=== PATIENT | male | born 1970 | race Asian ===

== ENCOUNTER 2024-01-02 13:37 | Emergency (ER) | payer OTHER, SELFPAY ==
[2024-01-02 13:46] VITALS: BP 155/87
[2024-01-02 14:12] LABS: % Basophils 0.5 % (0-2); % Eosinophils 0.6 % (0-6); % Immature Granulocytes 0.2 % (0-0.5); % Lymphocytes 20.1 % (20.5-51.1); % Neutrophils 70.6 % (42.2-75.2); Absolute Basophils 0.1 10^3/uL (0-0.2); Absolute Eosinophils 0.1 10^3/uL (0-0.7); Absolute Lymphocytes 1.9 10^3/uL (1.2-3.4); Absolute Monocytes 0.8 10^3/uL (0.1-0.6); Absolute Neutrophils 6.8 10^3/uL (1.4-6.5); Hematocrit 47.5 % (39.0-52.0); Hemoglobin 16.8 g/dL (13.0-18.0); Mean Corp Hgb Conc. 35.4 g/dL (33.0-37.0); Mean Corpuscular Hgb 30.8 pg (27.0-31.0); Mean Corpuscular Volume 87.2 fL (80.0-94.0); Mean Platelet Volume 9.7 fL (7.4-10.4); Nucleated Red Blood Cells % 0 % (-); Platelet Count 295 10^3/uL (130-400); Red Blood Cell Count 5.45 10^6/uL (4.70-6.10); Red Cell Dist. Width 12.1 % (11.5-14.5); White Blood Cell Count 9.6 10^3/uL (4.8-10.8)
[2024-01-02 14:25] LABS: ALT (SGPT) 38 U/L (0-50); AST (SGOT) 25 U/L (17-59); Albumin 4.3 g/dl (3.5-5.0); Alkaline Phosphatase 92 U/L (38-126); Blood Urea Nitrogen 18 mg/dl (9-20); Calcium 9.6 mg/dl (8.4-10.2); Carbon Dioxide 30 mmol/L (22-30); Chloride 102 mmol/L (98-107); Glucose 103 mg/dl (70-99); Lipase 105 U/L (23-300); Potassium 3.8 mmol/L (3.5-5.1); Sodium 138 mmol/L (135-145); Total Bilirubin 0.5 mg/dl (0.2-1.3); Total Protein 6.8 g/dl (6.3-8.2); eGFR > 60.00
[2024-01-02 14:56] VITALS: BP 134/81
[2024-01-02] MEDS: NSS 1000 IV (15:33)
[2024-01-02 16:08] LABS: COVID-19 Antigen Negative (Negative)
--- NOTE | 2024-01-02 16:54 | ED.GENMED ---
History of Present Illness
<Lolita Holloway PA-C - Last Filed: 01/03/24 18:21>
General
Chief Complaint: Abdominal Symptoms
Time Seen by Provider: 01/02/24 14:53
History of Present Illness
History of Present Illness:
53yoM with no significant past medical history presenting with his for evaluation of abdominal symptoms. Patient is Syriac speaking and history is obtained with the assistance of an political scientist. Symptoms initially started 1 week ago. He
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 He started having nausea and vomiting 1 week ago which lasted for 2 days before resolving. He has not had any vomiting in the past 5 days. He also is constipated and has not had a BM in 7 days.
He reports intermittent R sided abdominal pain but he denies any pain currently. He also is having a headache. He had chills yesterday but denies any fevers. He has been seen by his PCP and at urgent care for his symptoms. No previous abdominal
surgeries.
Phy Exam
<Lolita Holloway PA-C - Last Filed: 01/03/24 18:21>
General Physical Exam
General Presentation: well appearing and no apparent distress
General age: appears stated age
General Skin: warm and dry
General Habitus: normal
General Mental: alert
Cardiovascular Exam
Cardiovascular Exam: regular rate/rhythm, no edema and no murmur
Pulmonary Exam
Pulmonary Exam: lungs clear, no respiratory distress, no crackles and no wheezing
Gastrointestinal Exam
Gastrointestinal Exam: non tender, soft and non distended
Skin Exam
Skin Exam: normal color and warm/dry
Psychiatric Exam
Psychiatric Exam: normal mood/affect
Course
<Lolita Holloway PA-C - Last Filed: 01/03/24 18:21>
Orders/Labs/Results
Orders:
Orders
01/02/24 13:55
Complete Blood Count/With Diff Urgent
Comprehensive Metabolic Panel Urgent
Lipase Urgent
01/02/24 15:14
CT Abd/pelvis W Iv Cont Urgent
Comment:
Reason For Exam: Intermittent R abd pain, constipation
0.9% Sodium Chloride 1000 ml [Nss] 1,000 ml IV BOLUS
01/02/24 15:42
COVID-19 Antigen Urgent
Source: Nasal Swab
Abnormal Lab Results
01/02/24
13:55
Absolute Neuts (auto) 6.8 H 10^3/uL
(1.4-6.5)
Absolute Monos (auto) 0.8 H 10^3/uL
(0.1-0.6)
Lymphocytes % 20.1 L %
(20.5-51.1)
Glucose 103 H mg/dl
(70-99)
01/02/24 13:55
01/02/24 13:55
Vital Signs
Initial and Last Documented VS:
Initial Vital Signs
Temp Pulse Resp BP Pulse Ox
98.7 F 68 18 155/87 98
01/02/24 13:46 01/02/24 13:46 01/02/24 13:46 01/02/24 13:46 01/02/24 13:46
Last Documented Vital Signs
Temp Pulse Resp BP Pulse Ox
98.7 F 72 18 144/82 99
01/02/24 13:46 01/02/24 17:13 01/02/24 17:13 01/02/24 17:13 01/02/24 17:13
Lucianlt;Scott Powell PA-C - Last Filed: 01/02/24 19:23>
Orders/Labs/Results
Orders:
Orders
01/02/24 13:55
Complete Blood Count/With Diff Urgent
Comprehensive Metabolic Panel Urgent
Lipase Urgent
01/02/24 15:14
CT Abd/pelvis W Iv Cont Urgent
Comment:
Reason For Exam: Intermittent R abd pain, constipation
0.9% Sodium Chloride 1000 ml [Nss] 1,000 ml IV BOLUS
01/02/24 15:42
COVID-19 Antigen Urgent
Source: Nasal Swab
Abnormal Lab Results
01/02/24
13:55
Absolute Neuts (auto) 6.8 H 10^3/uL
(1.4-6.5)
Absolute Monos (auto) 0.8 H 10^3/uL
(0.1-0.6)
Lymphocytes % 20.1 L %
(20.5-51.1)
Glucose 103 H mg/dl
(70-99)
01/02/24 13:55
01/02/24 13:55
Vital Signs
Initial and Last Documented VS:
Initial Vital Signs
Temp Pulse Resp BP Pulse Ox
98.7 F 68 18 155/87 98
01/02/24 13:46 01/02/24 13:46 01/02/24 13:46 01/02/24 13:46 01/02/24 13:46
Last Documented Vital Signs
Temp Pulse Resp BP Pulse Ox
98.7 F 72 18 144/82 99
01/02/24 13:46 01/02/24 17:13 01/02/24 17:13 01/02/24 17:13 01/02/24 17:13
Lucianlt;Lolita Holloway PA-C - Last Filed: 01/03/24 18:21>
MDM/Problems Addressed
Differential Diagnosis Includes:
53yoM here with abdominal symptoms x 1 week. Initially started with vomiting. C/o constipation and has not had a BM in 7 days. Also having intermittent R sided abd pain and headaches. He is afebrile and hemodynamically stable. He is well appearing
in no distress. No signs of peritonitis on abdominal exam. Differential diagnosis includes but is not limited to: constipation, gastroenteritis, viral syndrome, diverticulitis, appendicitis
Initial ED plan: Check abdominal labs, COVID swab, and CT abdomen. IV fluid bolus.
<Scott Powell PA-C - Last Filed: 01/02/24 19:23>
*Critical Care Note
Total Time (30-74mins, 75-104mins- exclusive of procedures): Not Applicable
<Lolita Holloway PA-C - Last Filed: 01/03/24 18:21>
Update Note
Update Note:
Labs unremarkable including normal white count, renal function, LFTs, and lipase. COVID swab negative. Patient signed out to Adrian Medrano PA-C prior to CT results. Final disposition pending.
Assumed care of patient pending CT of abdomen. CT shows no acute findings. Suspect underlying viral illness. Recommended hydration and MiraLAX. Reassessed patient. He appears comfortable. Use language line political scientist and all questions were
answered. Stable for discharge
<Scott Powell PA-C - Last Filed: 01/02/24 19:23>
Update Note
Update Note:
Labs unremarkable including normal white count, renal function, LFTs, and lipase. COVID swab negative.
Assumed care of patient pending CT of abdomen. CT shows no acute findings. Suspect underlying viral illness. Recommended hydration and MiraLAX. Reassessed patient. He appears comfortable. Use language line political scientist and all questions were
answered. Stable for discharge
ED Attending Note
<Lolita Holloawy PA-C - Last Filed: 01/03/24 18:21>
-
Portions of this chart may have been created with voice recognition software.� Occasional wrong word or��sound alike� substitutions may have occurred due to the inherent limitations of voice recognition software.
Discharge Plan
Departure
Patient Disposition: Home (Routine Discharge)
Date of Disposition: 01/02/24
Time of Disposition: 19:22
Patient with high blood pressure during this ER visit?: No
Discharge Problem:
Acute viral syndrome
Instructions: Nausea and Vomiting, Adult (DC)
Referrals:
Reese Leo MD [Family Provider] -
Activity Restrictions/Additional Instructions:
Drink plenty of fluids. Use MiraLAX twice a day for constipation. Return if worse otherwise follow-up with your family doctor
Interventions
Interventions:
*Risk Screen - Suicide Last Done: 01/02/24 14:57
*General Assessment Last Done: 01/02/24 13:46
*Neglect/Abuse Screening Last Done: 01/02/24 14:57
ED- Fall Risk Assessment Last Done: 01/02/24 19:50
*ED COVID-19 Vaccine History Last Done: 01/02/24 13:46
*Nursing Disposition Last Done: 01/02/24 19:50
VZ-Kvpnvc-[id number] Assessment Last Done: 01/02/24 15:54
Discharge Date and Time
Discharge Date/Time: 01/02/24 19:50
Print Language: CONGOLESE
[2024-01-02 17:13] VITALS: BP 144/82
== END 2024-01-02 19:50 | disposition home or self-care (01) ==
LOC: EMR 13:37
PROVIDERS: Emergency Medicine; Physician Assistant; EMERGENCY PHYSICIAN Emergency Medicine; FAMILY PHYSICIAN Family Medicine
DX: B34.9 Viral infection, unspecified (principal); K59.00 Constipation, unspecified; R10.9 Unspecified abdominal pain; R51.9 Headache, unspecified; R68.83 Chills (without fever); Z11.52 Encounter for screening for COVID-19
CPT/HCPCS: 99285; 96360; 74177; 80053; 83690; 85025; 87811; Q9967